=== PATIENT | male | born 1975 | race Caucasian/White ===

== ENCOUNTER → 2025-03-17 11:18 | Outpatient (REF) | payer BC, SELFPAY | LOC: RAD 11:18 | PROVIDERS: ATTENDING PHYSICIAN Registered Nurse | DX: M54.41 Lumbago with sciatica, right side (principal) | CPT/HCPCS: 72110 ==

== ENCOUNTER → 2025-07-03 14:14 | Outpatient (REF) | payer BC, SELFPAY ==
[2025-07-03 14:39] LABS: Hematocrit 40.8 % (39.0-52.0); Hemoglobin 14.3 g/dL (13.0-18.0); Mean Corp Hgb Conc. 35.0 g/dL (33.0-37.0); Mean Corpuscular Volume 88.9 fL (80.0-94.0); Nucleated Red Blood Cells % 0 % (-); Platelet Count 236 10^3/uL (130-400); Red Cell Dist. Width 12.1 % (11.5-14.5)
[2025-07-03 15:47] LABS: ALT (SGPT) 25 U/L (0-50); AST (SGOT) 25 U/L (17-59); Albumin 4.8 g/dl (3.5-5.0); Alkaline Phosphatase 85 U/L (38-126); Blood Urea Nitrogen 13 mg/dl (9-20); Calcium 9.6 mg/dl (8.4-10.2); Carbon Dioxide 26 mmol/L (22-30); Chloride 104 mmol/L (98-107); Glucose 88 mg/dl (70-99); HDL Cholesterol 67 mg/dl; LDL Cholesterol, Calculated 119 mg/dl; Potassium 3.9 mmol/L (3.5-5.1); Sodium 139 mmol/L (135-145); Total Protein 7.8 g/dl (6.3-8.2); Very Low Density Lipoprotein 8 mg/dl (0-30); eGFR > 60.00
== END ==
LOC: REG 14:14
PROVIDERS: ATTENDING PHYSICIAN Registered Nurse
DX: M54.41 Lumbago with sciatica, right side (principal); E78.2 Mixed hyperlipidemia; Z20.2 Contact with and (suspected) exposure to infections with a predominantly sexual mode of transmission
CPT/HCPCS: 36415; 80053; 80061; 84443; 85025; 86780; 87389; 87491; 87591